=== PATIENT | female | born 1940 | race Caucasian/White ===

== ENCOUNTER 2022-05-07 20:34 | Emergency (ER) | payer OTHER ==
[~2022-05-07] VITALS: Ht 162.6 cm; Wt 66.0 kg
[~2022-05-07 20:34] MED LIST: AMOXICILLIN/CL875 MG PO; FLOVENT DISKU250 MCG IN; NAPROSYN500 MG PO; PRAVASTATIN SOD20 MG PO; ROCEPHIN 1 GM1 GM IM; SOLU-MEDROL125 MG IM; SYNTHROID50 MCG PO; SYSTAN1 OP; TELMISARTAN40 MG PO
[2022-05-08] MEDS ORDERED: PERCOCET 5/325M1 TAB PO ×2 (00:42→09:36)
[2022-05-08 00:55] VITALS: BP 134/67
== END 2022-05-08 01:21 | disposition home or self-care (01) | DRG 563 ==
LOC: ED 20:34
PROC: 2W3BXYZ Immobilization of Left Upper Arm using Other Device (ICD-10-PCS; principal; 2022-05-07)
DX: S42.302A Unspecified fracture of shaft of humerus, left arm, initial encounter for closed fracture (principal); I10 Essential (primary) hypertension; W01.0XXA Fall on same level from slipping, tripping and stumbling without subsequent striking against object, initial encounter